=== PATIENT | female | born 1970 | race Caucasian/White ===

== ENCOUNTER 2020-11-24 15:40 | Emergency (ER) | payer OTHER ==
[~2020-11-24] VITALS: Ht 154.9 cm; Wt 71.7 kg
[~2020-11-24 15:40] MED LIST: BASAGLAR K100 UNIT/1 SC; COLACE 100MG C100 MG PO; ECOTRIN81 MG PO; HYDROCHLOROTH12.5 MG PO; LISINOPRIL-HCT1 EAC1 PO; MIRALAX17 GM PO; NEURONTIN400 MG PO; NORVASC 5 MG TAB5 MG PO; PRINIVIL20 MG PO; SUBOXONE 8 MG-1 EACH SL; ZOCOR20 MG PO; ZOFRAN4 MG PO
== END 2020-11-24 18:31 | disposition home or self-care (01) ==
LOC: ER1 15:40
DX: U07.1 COVID-19 (principal); Z23 Encounter for immunization; I25.10 Atherosclerotic heart disease of native coronary artery without angina pectoris; I10 Essential (primary) hypertension; E11.9 Type 2 diabetes mellitus without complications; Z95.1 Presence of aortocoronary bypass graft
CPT/HCPCS: 99284; M0243

== ENCOUNTER 2020-12-30 15:48 | Inpatient (IN) | payer OTHER ==
[~2020-12-30] VITALS: Ht 154.9 cm; Wt 76.2 kg
[2020-12-30 17:35] LABS: BUN/CREATININE RATIO 28 (0-10)
[2020-12-30 17:45] LABS: HEMOGLOBIN 13.7 gm/dl (12.3-15.3); RED BLOOD COUNT 4.02 M/UL (4.00-5.10); WHITE BLOOD COUNT 6.8 K/UL (4.5-11.0)
[2020-12-30] MEDS ORDERED: COREG 12.5MG12.5 MG PO (20:29)
[2020-12-30] MEDS ORDERED: ELIQUIS5 MG PO (20:30)
[2020-12-30] MEDS ORDERED: ALDACTONE 25MG25 MG PO (20:30)
[2020-12-30] MEDS ORDERED: GABAPENTIN600 MG PO (20:32)
[2020-12-30] MEDS ORDERED: ATORVASTATIN CA10 MG PO (20:36)
[2020-12-30] MEDS ORDERED: FUROSEMIDE40 MG PO (20:37)
[2020-12-30] MEDS ORDERED: POTASSIUM CHLO10 MEQ PO (20:37)
[2020-12-30] MEDS ORDERED: ENULOSE10 GM/15 M PO (20:37)
[2020-12-30] MEDS ORDERED: VITAMIN B-121000 MCG PO (20:39)
[2020-12-30] MEDS ORDERED: VITAMIN D325 MCG PO (20:40)
[2020-12-31 02:06] LABS: HEMOGLOBIN 13.2 gm/dl (12.3-15.3); RED BLOOD COUNT 3.76 M/UL (4.00-5.10); WHITE BLOOD COUNT 5.6 K/UL (4.5-11.0)
[2020-12-31 06:02] LABS: ACINETOBACTER BAUMANNII Not Detected (Negative); CANDIDA ALBICANS Not Detected (Negative); CANDIDA KRUSEI Not Detected (Negative); CANDIDA TROPICALIS Not Detected (Negative); ENTEROCOCCUS Not Detected (Negative); HAEMOPHILUS INFLUENZAE Not Detected (Negative); KLEBSIELLA OXYTOCA Not Detected (Negative); KLEBSIELLA PNEUMONIAE Not Detected (Negative); KPC-CARBAPENEM-RESISTANCE GENE Not Detected (Negative); PROTEUS Not Detected (Negative); PSEUDOMONAS AERUGINOSA Not Detected (Negative); SERRATIA MARCESANS Not Detected (Negative); STAPHYLOCOCCUS Not Detected (Negative); STAPHYLOCOCCUS AUREUS Not Detected (Negative); STREP AGALACTIAE (GROUP B) Not Detected (Negative); STREP PYOGENES (GROUP A) Not Detected (Negative); STREPTOCOCCUS Not Detected (Negative); mecA (METHICILLIN RESIST GENE Not Detected (Negative); vanA/B (VANCOMYCIN RESIST GENE Not Detected (Negative)
[2020-12-31 06:06] LABS: ESCHERICHIA COLI DETECTED (Negative)
[2020-12-31 17:04] LABS: BUN/CREATININE RATIO 27 (0-10)
[2021-01-01 08:31] LABS: HEMOGLOBIN 13.6 gm/dl (12.3-15.3); RED BLOOD COUNT 3.88 M/UL (4.00-5.10); WHITE BLOOD COUNT 5.9 K/UL (4.5-11.0)
[2021-01-01 09:01] LABS: BUN/CREATININE RATIO 31 (0-10)
[2021-01-02 05:11] LABS: HBSAG SCREEN Negative (Negative); HEP A AB, IGM Negative (Negative); HEP B CORE AB, IGM Negative (Negative); HEP C VIRUS AB <0.1 (0.0-0.9)
[2021-01-02 07:33] LABS: HEMOGLOBIN 12.9 gm/dl (12.3-15.3); RED BLOOD COUNT 3.91 M/UL (4.00-5.10)
[2021-01-02 09:10] LABS: BUN/CREATININE RATIO 22 (0-10)
[2021-01-03 06:58] LABS: HEMOGLOBIN 12.6 gm/dl (12.3-15.3); RED BLOOD COUNT 3.66 M/UL (4.00-5.10)
[2021-01-03 07:53] LABS: BUN/CREATININE RATIO 20 (0-10)
[2021-01-03] MEDS ORDERED: DOXYCYCLINE HY100 MG PO (13:04)
[2021-01-03] MEDS ORDERED: FERROUS SULFAT325 M2 PO (13:16)
== END 2021-01-03 16:08 | disposition home health service (06) | DRG 871 ==
LOC: ER1 15:48 → CDU 18:22 → MED SURG 4 19:43
PROVIDERS: Nurse Practitioner; Physician Assistant; ADMIT Internal Medicine
DX: A41.51 Sepsis due to Escherichia coli [E. coli] (principal); G93.41 Metabolic encephalopathy; Z20.822 Contact with and (suspected) exposure to COVID-19; N39.0 Urinary tract infection, site not specified; F11.20 Opioid dependence, uncomplicated; E87.2 Acidosis; E87.1 Hypo-osmolality and hyponatremia; B37.89 Other sites of candidiasis; N17.9 Acute kidney failure, unspecified; K76.0 Fatty (change of) liver, not elsewhere classified; E78.5 Hyperlipidemia, unspecified; I10 Essential (primary) hypertension; K74.60 Unspecified cirrhosis of liver; I25.10 Atherosclerotic heart disease of native coronary artery without angina pectoris; Z86.16 Personal history of COVID-19; Z88.8 Allergy status to other drugs, medicaments and biological substances; Z95.1 Presence of aortocoronary bypass graft; Z79.899 Other long term (current) drug therapy; Z79.82 Long term (current) use of aspirin; Z79.52 Long term (current) use of systemic steroids
CPT/HCPCS: 36415; 36600; 70450; 71045; 73630; 73700; 76705; 80048; 80053; 80074; 81001; 82436; 82550; 82553; 82570; 82607; 82746; 82803; 82962; 83540; 83550; 83605; 83735; 83874; 83880; 84100; 84133; 84300; 84443; 84484; 84550; 85025; 85610; 86140; 87040; 87077; 87086; 87150; 87186; 93005; 96374; 96375; 99285; C1751; C9113; J0696; J2185; J2405; J2543; J3370; J7030; J7050; U0002

== ENCOUNTER 2021-11-07 14:31 | Inpatient (IN) | payer OTHER ==
[~2021-11-07] VITALS: Ht 154.9 cm; Wt 81.6 kg
[~2021-11-07 14:31] MED LIST changes: +ALDACTONE 25MG25 MG PO; +ATORVASTATIN CA10 MG PO; +COREG12.5 MG PO; +DOXYCYCLINE HY100 MG PO; +ELIQUIS5 MG PO; +ENULOSE10 GM/15 M PO; +FERROUS SULFAT325 M2 PO; +FUROSEMIDE40 MG PO; +GABAPENTIN600 MG PO; +POTASSIUM CHLO10 MEQ PO; +VITAMIN B-121000 MCG PO; +VITAMIN D325 MCG PO
[2021-11-07 15:22] LABS: HEMOGLOBIN 15.6 gm/dl (12.3-15.3); RED BLOOD COUNT 4.47 M/UL (4.00-5.10); WHITE BLOOD COUNT 4.9 K/UL (4.5-11.0)
[2021-11-07 15:48] LABS: BUN/CREATININE RATIO 22 (0-10)
[2021-11-07] MEDS ORDERED: ASPIRIN EC81 MG PO (18:08)
[2021-11-07] MEDS ORDERED: PROTONIX40 MG PO (18:13)
[2021-11-08 03:08] LABS: WHITE BLOOD COUNT 5.6 K/UL (4.5-11.0)
[2021-11-08 03:10] LABS: HEMOGLOBIN 12.6 gm/dl (12.3-15.3); RED BLOOD COUNT 3.66 M/UL (4.00-5.10)
[2021-11-08 03:44] LABS: BUN/CREATININE RATIO 25 (0-10)
[2021-11-08] MEDS ORDERED: FUROSEMIDE40 MG PO (16:08)
== END 2021-11-08 19:40 | disposition home or self-care (01) | DRG 433 ==
LOC: ER1 14:31 → MED SURG 4 18:53 → CDU 18:53 → MED SURG 4 21:46
PROVIDERS: Student in an Organized Health Care Education/Training Program; ADMIT Internal Medicine
DX: K74.69 Other cirrhosis of liver (principal); F11.20 Opioid dependence, uncomplicated; R18.8 Other ascites; J90 Pleural effusion, not elsewhere classified; I25.110 Atherosclerotic heart disease of native coronary artery with unstable angina pectoris; K75.81 Nonalcoholic steatohepatitis (NASH); E11.9 Type 2 diabetes mellitus without complications; D64.9 Anemia, unspecified; D69.6 Thrombocytopenia, unspecified; E80.6 Other disorders of bilirubin metabolism; F17.210 Nicotine dependence, cigarettes, uncomplicated; G89.29 Other chronic pain; T50.2X5A Adverse effect of carbonic-anhydrase inhibitors, benzothiadiazides and other diuretics, initial encounter; Z95.1 Presence of aortocoronary bypass graft; Z88.8 Allergy status to other drugs, medicaments and biological substances; Z79.4 Long term (current) use of insulin
CPT/HCPCS: 71045; 80053; 81001; 82140; 82550; 82553; 82607; 82746; 82962; 83036; 83690; 83735; 83880; 84484; 85025; 85027; 85610; 85730; 93005; 96374; 99285; J1940; Q9967; U0002